=== PATIENT | male | born 1965 | race African-American/Black ===

== ENCOUNTER 2017-01-08 10:01 | Inpatient (IN) | payer OTHER ==
[2017-01-08 10:42] VITALS: BMI 29.1
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
[2017-01-08] MEDS ORDERED: ACETAMINOPHEN 325 MG TABLET (FP) PO PRN (11:51)
[2017-01-08] MEDS ORDERED: MAG HYDROX/AL HYDROX/SIMETH 30 ML UNIT-DOSE CUP PO PRN (11:51)
[2017-01-08] MEDS ORDERED: MAGNESIUM HYDROX 2400MG/30ML ORAL SUSPENSION 30 ML CUP PO PRN (11:51)
[2017-01-08] MEDS ORDERED: MENTHOL/PHENOL 1 EACH UD MM PRN (11:51)
[2017-01-08] MEDS ORDERED: chlordiazePOXIDE HCL 25 MG CAPSULE PO PRN (11:51)
[2017-01-08] MEDS ORDERED: MAGNESIUM CITRATE 300 ML BOTTLE PO PRN (11:51)
[2017-01-08] MEDS ORDERED: hydrOXYzine PAMOATE 50 MG CAPSULE (FP) PO PRN (11:51)
[2017-01-08] MEDS ORDERED: diphenhydrAMINE HCL 50 MG CAPSULE PO PRN (11:51)
[2017-01-08] MEDS ORDERED: guaiFENesin/D-METHORPHAN HB 10 ML UNIT-DOSE CUPS PO PRN (11:51)
[2017-01-08] MEDS ORDERED: LOPERAMIDE HCL 2 MG CAPSULE PO PRN (11:51)
[2017-01-08] MEDS ORDERED: P-EPHED 60MG/TRIPROLIDI 2.5MG TABLET PO PRN (11:51)
[2017-01-08] MEDS ORDERED: NICOTINE POLACRILEX 4 MG GUM BC PRN (11:51)
[2017-01-08] MEDS ORDERED: chlordiazePOXIDE HCL 25 MG CAPSULE PO ONE (13:00)
[2017-01-08 15:46] LABS: URINE APPEARANCE CLEAR; URINE BILIRUBIN NEGATIVE (NEGATIVE); URINE BLOOD NEGATIVE (NEGATIVE); URINE COLOR YELLOW; URINE GLUCOSE (UA) NEGATIVE (NEGATIVE); URINE KETONE NEGATIVE (NEGATIVE); URINE LEUK ESTERASE NEGATIVE (NEGATIVE); URINE NITRITE NEGATIVE (NEGATIVE); URINE PROTEIN NEGATIVE (NEGATIVE)
[2017-01-08] MEDS ORDERED: INSULIN (NOVOLOG) ASPART 100 UNITS/ML 10ML VIAL ONE (17:23)
[2017-01-08] MEDS: metFORMIN HCL 500 MG TABLET (FP) PO SCH (17:42)
[2017-01-08] MEDS: chlordiazePOXIDE HCL 25 MG CAPSULE PO SCH ×2 (17:42→22:21)
[2017-01-08] MEDS: INSULIN SLIDING SCALE (NOVOLOG) 1 VIAL SQ SCH (17:42)
[2017-01-08] MEDS: THIAMINE HCL 100 MG TABLET (FP) PO SCH (22:21)
[2017-01-09] MEDS: chlordiazePOXIDE HCL 25 MG CAPSULE PO SCH ×4 (06:10→22:34)
[2017-01-09] MEDS: metFORMIN HCL 500 MG TABLET (FP) PO SCH ×2 (06:48→17:14)
[2017-01-09] MEDS: INSULIN SLIDING SCALE (NOVOLOG) 1 VIAL SQ SCH ×2 (06:49→17:15)
--- NOTE | 2017-01-09 10:30 | PN ---
S CIWA - CIWA Score Nausea/Vomitin Muscle Tremors: 4-Moderate,w/Arms Extend Anxiety: 4-Mod. Anxious/Guarded Agitation: 4-Moderately Restless Paroxysmal Sweats: 3 Orientation: 0-Oriented Tacttile Disturbances: 1-Very Mild Itch/Numbness Auditory Disturbances: 0-None Visual Disturbances: 0-None Headache: 1-Very Mild CIWA-Ar Total Score: 20 BHS Progress Note (SOAP) Subjective: nausea, sweats, interrupted sleep, anxiety, tremors Objective: 01/09/17 10:30 Vital Signs - 24 hr 01/08/17 01/08/17 01/08/17 10:40 14:59 18:24 Temperature 98.8 F 97.9 F 97.9 F Pulse Rate 91 H 86 90 Respiratory 16 18 20 Rate Blood Pressure 128/76 122/74 140/89 01/08/17 01/09/17 01/09/17 23:21 03:30 06:23 Temperature 97.7 F 98.3 F Pulse Rate 96 H 96 H 79 Respiratory 20 18 18 Rate Blood Pressure 138/84 101/64 Laboratory Tests 01/08/17 01/08/17 01/08/17 12:06 12:51 16:33 POC Glucometer 203 151 Urine Color Yellow Urine Appearance Clear Urine pH 5.0 Ur Specific [place] >= 1.030 H Urine Protein Negative Urine Glucose (UA) Negative Urine Ketones Negative Urine Blood Negative Urine Nitrite Negative Urine Bilirubin Negative Urine Urobilinogen 2.0 Ur Leukocyte Esterase Negative 01/09/17 06:10 POC Glucometer 130 Urine Color Urine Appearance Urine pH Ur Specific [place] Urine Protein Urine Glucose (UA) Urine Ketones Urine Blood Urine Nitrite Urine Bilirubin Urine Urobilinogen Ur Leukocyte Esterase labs pending Assessment: 01/09/17 10:30 withdrawal sx Plan: cont detox.
[2017-01-09 10:35] LABS: MCH 31.5 pg (25.7-33.7); MEAN CELL VOLUME 95.6 fl (80-96); PLATELET COUNT 182 K/MM3 (134-434); WHITE BLOOD COUNT 4.8 K/mm3 (4.0-10.0)
[2017-01-09] MEDS: METHIMAZOLE 10 MG TABLET (FP) PO SCH (10:48)
[2017-01-09] MEDS: ASPIRIN 81 MG CHEWABLE TABLETS PO SCH (10:48)
[2017-01-09] MEDS: PRENATAL VITAMINS W/ FOLIC ACID TABLET (FP) PO SCH (10:48)
[2017-01-09 10:49] LABS: ANION GAP 8 (8-16); CALCIUM 8.6 mg/dL (8.5-10.1); CO2 27 mmol/L (21-32); GLUCOSE,RANDOM 206 mg/dL (74-106)
[2017-01-09 10:52] LABS: ALK PHOS 105 U/L (45-117); BILIRUBIN,TOTAL 0.3 mg/dL (0.2-1.0); CREATININE 0.9 mg/dL (0.7-1.3); SGOT/AST 13 U/L (15-37); SGPT/ALT 28 U/L (12-78)
[2017-01-09 11:28] LABS: HIV 1 & 2 AB NEGATIVE; HIV 1 AGp24 NEGATIVE
--- NOTE | 2017-01-09 14:04 | EKG ---
Test Reason : Blood Pressure : / mmHG Vent. Rate : 079 BPM Atrial Rate : 079 BPM P-R Int : 122 ms QRS Dur : 086 ms QT Int : 356 ms P-R-T Axes : 138 070 078 degrees QTc Int : 408 ms UNUSUAL P AXIS, POSSIBLE ECTOPIC ATRIAL RHYTHM MINIMAL VOLTAGE CRITERIA FOR LVH, MAY BE NORMAL VARIANT ST ELEVATION, CONSIDER EARLY REPOLARIZATION, PERICARDITIS, OR INJURY ABNORMAL ECG NO PREVIOUS ECGS AVAILABLE REPEAT EKG IF CLINICALLY INDICATED Confirmed by ALEC SOLIMAN MD ([id number]) on 01/09/2017 2:04:09 PM Referred By: Confirmed By:ALEC OSLIMAN MD
[2017-01-09] MEDS ORDERED: INSULIN (NOVOLOG) ASPART 100 UNITS/ML 10ML VIAL ONE (17:10)
[2017-01-09] MEDS: THIAMINE HCL 100 MG TABLET (FP) PO SCH (22:34)
[2017-01-10] MEDS: chlordiazePOXIDE HCL 25 MG CAPSULE PO SCH ×2 (05:50→10:48)
[2017-01-10] MEDS: metFORMIN HCL 500 MG TABLET (FP) PO SCH ×2 (07:59→17:46)
[2017-01-10] MEDS: INSULIN SLIDING SCALE (NOVOLOG) 1 VIAL SQ SCH ×2 (08:20→17:47)
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
[2017-01-10] MEDS: PRENATAL VITAMINS W/ FOLIC ACID TABLET (FP) PO SCH (10:48)
[2017-01-10] MEDS: ASPIRIN 81 MG CHEWABLE TABLETS PO SCH (10:48)
[2017-01-10] MEDS: METHIMAZOLE 10 MG TABLET (FP) PO SCH (10:49)
[2017-01-10] MEDS ORDERED: INSULIN (NOVOLOG) ASPART 100 UNITS/ML 10ML VIAL ONE (16:46)
[2017-01-10] MEDS: chlordiazePOXIDE 5 MG CAPSULE PO SCH ×2 (17:46→22:25)
[2017-01-10] MEDS: THIAMINE HCL 100 MG TABLET (FP) PO SCH (22:25)
[2017-01-11] MEDS: chlordiazePOXIDE 5 MG CAPSULE PO SCH ×2 (06:07→10:24)
[2017-01-11] MEDS: INSULIN SLIDING SCALE (NOVOLOG) 1 VIAL SQ SCH ×2 (06:51→17:30)
[2017-01-11] MEDS: metFORMIN HCL 500 MG TABLET (FP) PO SCH ×2 (06:51→17:30)
[2017-01-11] MEDS: PRENATAL VITAMINS W/ FOLIC ACID TABLET (FP) PO SCH (10:24)
[2017-01-11] MEDS: ASPIRIN 81 MG CHEWABLE TABLETS PO SCH (10:24)
[2017-01-11] MEDS: METHIMAZOLE 10 MG TABLET (FP) PO SCH (10:24)
--- NOTE | 2017-01-11 12:14 | PN ---
S CIWA - CIWA Score Nausea/Vomitin-No Nausea/No Vomiting Muscle Tremors: 3 Anxiety: 2 Agitation: 3 Paroxysmal Sweats: 2 Orientation: 0-Oriented Tacttile Disturbances: 0-None Auditory Disturbances: 0-None Visual Disturbances: 0-None Headache: 0-None Present CIWA-Ar Total Score: 10 BHS Progress Note (SOAP) Subjective: sweats nauses Objective: 01/11/17 12:12 Vital Signs Temperature 98.2 F 01/11/17 11:13 Pulse Rate 108 H 01/11/17 11:13 Respiratory Rate 18 01/11/17 11:13 Blood Pressure 122/68 01/11/17 11:13 O2 Sat by Pulse Oximetry (%) Laboratory Tests 01/08/17 01/08/17 01/08/17 12:06 12:51 16:33 WBC RBC Hgb Hct MCV MCH MCHC RDW Plt Count MPV Sodium Potassium Chloride Carbon Dioxide Anion Gap BUN Creatinine Creat Clearance w eGFR POC Glucometer 203 151 Random Glucose Calcium Total Bilirubin AST ALT Alkaline Phosphatase Total Protein Albumin Urine Color Yellow Urine Appearance Clear Urine pH 5.0 Ur Specific [place] >= 1.030 H Urine Protein Negative Urine Glucose (UA) Negative Urine Ketones Negative Urine Blood Negative Urine Nitrite Negative Urine Bilirubin Negative Urine Urobilinogen 2.0 Ur Leukocyte Esterase Negative RPR Titer HIV 1&2 Antibody Screen HIV P24 Antigen 01/09/17 01/09/17 01/09/17 06:10 07:00 07:00 WBC 4.8 RBC 4.44 Hgb 14.0 Hct 42.5 MCV 95.6 MCH 31.5 MCHC 33.0 RDW 14.0 Plt Count 182 MPV 9.0 Sodium 140 Potassium 4.1 Chloride 105 Carbon Dioxide 27 Anion Gap 8 BUN 10 Creatinine 0.9 Creat Clearance w eGFR > 60 POC Glucometer 130 Random Glucose 206 H Calcium 8.6 Total Bilirubin 0.3 AST 13 L ALT 28 Alkaline Phosphatase 105 Total Protein 6.0 L Albumin 3.0 L Urine Color Urine Appearance Urine pH Ur Specific [place] Urine Protein Urine Glucose (UA) Urine Ketones Urine Blood Urine Nitrite Urine Bilirubin Urine Urobilinogen Ur Leukocyte Esterase RPR Titer HIV 1&2 Antibody Screen HIV P24 Antigen 01/09/17 01/09/17 01/09/17 07:00 07:00 16:38 WBC RBC Hgb Hct MCV MCH MCHC RDW Plt Count MPV Sodium Potassium Chloride Carbon Dioxide Anion Gap BUN Creatinine Creat Clearance w eGFR POC Glucometer 221 Random Glucose Calcium Total Bilirubin AST ALT Alkaline Phosphatase Total Protein Albumin Urine Color Urine Appearance Urine pH Ur Specific [place] Urine Protein Urine Glucose (UA) Urine Ketones Urine Blood Urine Nitrite Urine Bilirubin Urine Urobilinogen Ur Leukocyte Esterase RPR Titer Nonreactive HIV 1&2 Antibody Screen Negative HIV P24 Antigen Negative 01/10/17 01/11/17 16:23 06:06 WBC RBC Hgb Hct MCV MCH MCHC RDW Plt Count MPV Sodium Potassium Chloride Carbon Dioxide Anion Gap BUN Creatinine Creat Clearance w eGFR POC Glucometer 227 216 Random Glucose Calcium Total Bilirubin AST ALT Alkaline Phosphatase Total Protein Albumin Urine Color Urine Appearance Urine pH Ur Specific [place] Urine Protein Urine Glucose (UA) Urine Ketones Urine Blood Urine Nitrite Urine Bilirubin Urine Urobilinogen Ur Leukocyte Esterase RPR Titer HIV 1&2 Antibody Screen HIV P24 Antigen awake/alert ambulating no acute distress Assessment: 01/11/17 12:13 withdrawal sx Plan: continue detox increase fluids d/c in am
[2017-01-11] MEDS: chlordiazePOXIDE HCL 10 MG CAPSULE PO SCH ×2 (17:30→23:33)
[2017-01-11] MEDS ORDERED: INSULIN (NOVOLOG) ASPART 100 UNITS/ML 10ML VIAL ONE (17:30)
[2017-01-11] MEDS: THIAMINE HCL 100 MG TABLET (FP) PO SCH (23:33)
[2017-01-12 05:57] VITALS: BP 92/54; PULSE 83; TEMP 98.2
[2017-01-12] MEDS: chlordiazePOXIDE HCL 10 MG CAPSULE PO SCH (06:45)
[2017-01-12] MEDS: INSULIN SLIDING SCALE (NOVOLOG) 1 VIAL SQ SCH (06:46)
[2017-01-12] MEDS: metFORMIN HCL 500 MG TABLET (FP) PO SCH (06:47)
--- NOTE | 2017-01-12 09:30 | DS ---
[facility] Detox Discharge Summary Admission Date: 01/08/17 Discharge Date: 01/12/17 - History Present History: Alcohol Dependence, Cocaine Dependence Pertinent Past History: DM, hyperthyroidism, depression, anxiety, insomnia - Physical Exam Results Vital Signs: Vital Signs Temperature 98.2 F 01/12/17 05:56 Pulse Rate 83 01/12/17 05:56 Respiratory Rate 18 01/12/17 05:56 Blood Pressure 92/54 01/12/17 05:56 O2 Sat by Pulse Oximetry (%) Laboratory Tests 01/08/17 01/08/17 01/08/17 12:06 12:51 16:33 WBC RBC Hgb Hct MCV MCH MCHC RDW Plt Count MPV Sodium Potassium Chloride Carbon Dioxide Anion Gap BUN Creatinine Creat Clearance w eGFR POC Glucometer 203 151 Random Glucose Calcium Total Bilirubin AST ALT Alkaline Phosphatase Total Protein Albumin Urine Color Yellow Urine Appearance Clear Urine pH 5.0 Ur Specific [place] >= 1.030 H Urine Protein Negative Urine Glucose (UA) Negative Urine Ketones Negative Urine Blood Negative Urine Nitrite Negative Urine Bilirubin Negative Urine Urobilinogen 2.0 Ur Leukocyte Esterase Negative RPR Titer HIV 1&2 Antibody Screen HIV P24 Antigen 01/09/17 01/09/17 01/09/17 06:10 07:00 07:00 WBC 4.8 RBC 4.44 Hgb 14.0 Hct 42.5 MCV 95.6 MCH 31.5 MCHC 33.0 RDW 14.0 Plt Count 182 MPV 9.0 Sodium 140 Potassium 4.1 Chloride 105 Carbon Dioxide 27 Anion Gap 8 BUN 10 Creatinine 0.9 Creat Clearance w eGFR > 60 POC Glucometer 130 Random Glucose 206 H Calcium 8.6 Total Bilirubin 0.3 AST 13 L ALT 28 Alkaline Phosphatase 105 Total Protein 6.0 L Albumin 3.0 L Urine Color Urine Appearance Urine pH Ur Specific [place] Urine Protein Urine Glucose (UA) Urine Ketones Urine Blood Urine Nitrite Urine Bilirubin Urine Urobilinogen Ur Leukocyte Esterase RPR Titer HIV 1&2 Antibody Screen HIV P24 Antigen 01/09/17 01/09/17 01/09/17 07:00 07:00 16:38 WBC RBC Hgb Hct MCV MCH MCHC RDW Plt Count MPV Sodium Potassium Chloride Carbon Dioxide Anion Gap BUN Creatinine Creat Clearance w eGFR POC Glucometer 221 Random Glucose Calcium Total Bilirubin AST ALT Alkaline Phosphatase Total Protein Albumin Urine Color Urine Appearance Urine pH Ur Specific [place] Urine Protein Urine Glucose (UA) Urine Ketones Urine Blood Urine Nitrite Urine Bilirubin Urine Urobilinogen Ur Leukocyte Esterase RPR Titer Nonreactive HIV 1&2 Antibody Screen Negative HIV P24 Antigen Negative 01/10/17 01/11/17 01/11/17 16:23 06:06 16:25 WBC RBC Hgb Hct MCV MCH MCHC RDW Plt Count MPV Sodium Potassium Chloride Carbon Dioxide Anion Gap BUN Creatinine Creat Clearance w eGFR POC Glucometer 227 216 273 Random Glucose Calcium Total Bilirubin AST ALT Alkaline Phosphatase Total Protein Albumin Urine Color Urine Appearance Urine pH Ur Specific [place] Urine Protein Urine Glucose (UA) Urine Ketones Urine Blood Urine Nitrite Urine Bilirubin Urine Urobilinogen Ur Leukocyte Esterase RPR Titer HIV 1&2 Antibody Screen HIV P24 Antigen Pertinent Admission Physical Exam Findings: withdrawal sx - Treatment Hospital Course: Detox Protocol Followed, Detoxed Safely, Responded well, Discharged Condition Good, Rehab Referral Accepted - Medication Discharge Medications: Ambulatory Orders Aspirin [ASA -] 81 mg PO DAILY 01/08/17 Metformin HCl [Glucophage -] 500 mg PO BID 01/08/17 Methimazole [Tapazole -] 10 mg PO DAILY 01/08/17 - Diagnosis (1) Alcohol dependence with uncomplicated withdrawal Current Visit: Yes Status: Chronic (2) Cocaine dependence Current Visit: Yes Status: Chronic Qualifiers: Substance use status: uncomplicated Qualified Code(s): F14.20 - Cocaine dependence, uncomplicated (3) Diabetes mellitus treated with oral medication Current Visit: Yes Status: Chronic (4) Hyperthyroidism Current Visit: Yes Status: Chronic (5) Opiate abuse, episodic Current Visit: Yes Status: Chronic (6) PPD positive, treated Current Visit: Yes Status: Inactive - AMA Did Patient Leave Against Medical Advice: No
== END 2017-01-12 09:20 | disposition home or self-care (01) | DRG 774 ==
LOC: YASAS 10:01 → Y6N 12:29
PROVIDERS: ADMIT Internal Medicine Addiction Medicine; ATTEND Internal Medicine Addiction Medicine
PROC: HZ2ZZZZ Detoxification Services for Substance Abuse Treatment (ICD-10-PCS; principal; 2017-01-08)
DX: F10.230 Alcohol dependence with withdrawal, uncomplicated (principal); F14.20 Cocaine dependence, uncomplicated; F10.10 Alcohol abuse, uncomplicated; F17.210 Nicotine dependence, cigarettes, uncomplicated; E11.9 Type 2 diabetes mellitus without complications; E05.90 Thyrotoxicosis, unspecified without thyrotoxic crisis or storm; R76.11 Nonspecific reaction to tuberculin skin test without active tuberculosis; Z79.82 Long term (current) use of aspirin; Z79.84 Long term (current) use of oral hypoglycemic drugs; Z59.0 Homelessness
CPT/HCPCS: 36415; 71020-TC; 80053; 81003; 85027; 86593; 87389; 93005; 93010

== ENCOUNTER 2017-03-07 13:03 | Inpatient (IN) | payer OTHER ==
[2017-03-07 14:32] VITALS: BMI 28.6
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
[2017-03-07] MEDS ORDERED: MENTHOL/PHENOL 1 EACH UD MM PRN (16:26)
[2017-03-07] MEDS ORDERED: diphenhydrAMINE HCL 50 MG CAPSULE PO PRN (16:26)
[2017-03-07] MEDS ORDERED: P-EPHED 60MG/TRIPROLIDI 2.5MG TABLET PO PRN (16:26)
[2017-03-07] MEDS ORDERED: NICOTINE POLACRILEX 2 MG GUM BC PRN (16:26)
[2017-03-07] MEDS ORDERED: ACETAMINOPHEN 325 MG TABLET (FP) PO PRN (16:26)
[2017-03-07] MEDS ORDERED: LOPERAMIDE HCL 2 MG CAPSULE PO PRN (16:26)
[2017-03-07] MEDS ORDERED: hydrOXYzine PAMOATE 50 MG CAPSULE (FP) PO PRN (16:26)
[2017-03-07] MEDS ORDERED: MAGNESIUM CITRATE 300 ML BOTTLE PO PRN (16:26)
[2017-03-07] MEDS ORDERED: MAGNESIUM HYDROX 2400MG/30ML ORAL SUSPENSION 30 ML CUP PO PRN (16:26)
[2017-03-07] MEDS ORDERED: guaiFENesin/D-METHORPHAN HB 10 ML UNIT-DOSE CUPS PO PRN (16:26)
[2017-03-07] MEDS ORDERED: chlordiazePOXIDE HCL 25 MG CAPSULE PO PRN (16:26)
[2017-03-07] MEDS ORDERED: MAG HYDROX/AL HYDROX/SIMETH 30 ML UNIT-DOSE CUP PO PRN (16:26)
[2017-03-07] MEDS ORDERED: IBUPROFEN 400 MG TABLET (FP) PO PRN (16:26)
[2017-03-07] MEDS ORDERED: chlordiazePOXIDE HCL 25 MG CAPSULE PO SCH (17:00)
[2017-03-07] MEDS ORDERED: chlordiazePOXIDE HCL 25 MG CAPSULE PO ONE (17:30)
[2017-03-07] MEDS: ASPIRIN 81 MG CHEWABLE TABLETS PO SCH (17:42)
[2017-03-07] MEDS: NICOTINE 14 MG/24 HOURS TOPICAL PATCH TD SCH (17:43)
[2017-03-07] MEDS: METHIMAZOLE 10 MG TABLET (FP) PO SCH (18:05)
[2017-03-07 22:13] LABS: URINE APPEARANCE CLEAR; URINE BILIRUBIN NEGATIVE (NEGATIVE); URINE BLOOD NEGATIVE (NEGATIVE); URINE COLOR YELLOW; URINE GLUCOSE (UA) 1+ (NEGATIVE); URINE KETONE NEGATIVE (NEGATIVE); URINE NITRITE NEGATIVE (NEGATIVE); URINE PROTEIN NEGATIVE (NEGATIVE)
[2017-03-07] MEDS: THIAMINE HCL 100 MG TABLET (FP) PO SCH (22:27)
[2017-03-07] MEDS: chlordiazePOXIDE HCL 25 MG CAPSULE PO SCH (22:28)
[2017-03-08] MEDS: chlordiazePOXIDE HCL 25 MG CAPSULE PO SCH ×4 (05:55→22:14)
[2017-03-08] MEDS: metFORMIN HCL 500 MG TABLET (FP) PO SCH (07:24)
[2017-03-08 09:03] LABS: URINE LEUK ESTERASE Negative (NEGATIVE)
[2017-03-08 10:00] LABS: MCH 31.5 pg (25.7-33.7); MCHC 33.4 g/dl (32.0-35.9); MEAN CELL VOLUME 94.4 fl (80-96); MEAN PLT VOLUME 9.8 fl (7.5-11.1); PLATELET COUNT 182 K/MM3 (134-434); RDW 14.3 % (11.9-15.9); WHITE BLOOD COUNT 6.3 K/mm3 (4.0-10.0)
[2017-03-08] MEDS: METHIMAZOLE 10 MG TABLET (FP) PO SCH (10:13)
[2017-03-08] MEDS: ASPIRIN 81 MG CHEWABLE TABLETS PO SCH (10:13)
[2017-03-08] MEDS: PRENATAL VITAMINS W/ FOLIC ACID TABLET (FP) PO SCH (10:13)
[2017-03-08] MEDS: NICOTINE 14 MG/24 HOURS TOPICAL PATCH TD SCH (10:14)
[2017-03-08 10:19] LABS: ALBUMIN 3.3 g/dl (3.4-5.0); ALK PHOS 107 U/L (45-117); ANION GAP 6 (8-16); BILIRUBIN,TOTAL 0.4 mg/dL (0.2-1.0); CALCIUM 8.8 mg/dL (8.5-10.1); CO2 31 mmol/L (21-32); CREATININE 1.2 mg/dL (0.7-1.3); GLUCOSE,RANDOM 149 mg/dL (74-106); SGOT/AST 16 U/L (15-37); SGPT/ALT 29 U/L (12-78); TOT PROT 6.6 g/dl (6.4-8.2)
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
[2017-03-08] MEDS ORDERED: FLU VACCINE QUAD 60 MCG/0.5 ML (MDV 17-18) IM ONE (12:00)
[2017-03-08 12:05] LABS: HIV 1 & 2 AB NEGATIVE; HIV 1 AGp24 NEGATIVE
--- NOTE | 2017-03-08 12:31 | PN ---
[facility] CIWA - CIWA Score Nausea/Vomitin-No Nausea/No Vomiting Muscle Tremors: 4-Moderate,w/Arms Extend Anxiety: 3 Agitation: 2 Paroxysmal Sweats: 3 Orientation: 0-Oriented Tacttile Disturbances: 2-Mild Itch/Numbness/Burn Auditory Disturbances: 1-Very Mild Visual Disturbances: 2-Mild Sensitivity Headache: 0-None Present CIWA-Ar Total Score: 17 S Progress Note (SOAP) Subjective: Sweating, Anxious, Tremors. Objective: PT. A & O X 3, OBSERVED AMBULATING ON UNIT. NO ACUTE DISTRESS. 03/08/17 12:29 Vital Signs Temperature 97.0 F L 03/08/17 09:10 Pulse Rate 79 03/08/17 09:10 Respiratory Rate 18 03/08/17 09:10 Blood Pressure 108/72 03/08/17 09:10 O2 Sat by Pulse Oximetry (%) Laboratory Tests 03/07/17 03/07/17 03/07/17 06:00 15:40 21:45 WBC RBC Hgb Hct MCV MCH MCHC RDW Plt Count MPV Sodium Potassium Chloride Carbon Dioxide Anion Gap BUN Creatinine Creat Clearance w eGFR POC Glucometer 160 Random Glucose Calcium Total Bilirubin AST ALT Alkaline Phosphatase Total Protein Albumin Urine Color Yellow Urine Appearance Clear Urine pH 5.0 Ur Specific [place] 1.020 Urine Protein Negative Urine Glucose (UA) 1+ H Urine Ketones Negative Urine Blood Negative Urine Nitrite Negative Urine Bilirubin Negative Urine Urobilinogen 2.0 Ur Leukocyte Esterase Negative RPR Titer HIV 1&2 Antibody Screen Negative HIV P24 Antigen Negative 03/08/17 03/08/17 03/08/17 05:55 06:00 06:00 WBC 6.3 D RBC 4.66 Hgb 14.7 Hct 44.0 MCV 94.4 MCH 31.5 MCHC 33.4 RDW 14.3 Plt Count 182 MPV 9.8 Sodium 141 Potassium 4.1 Chloride 104 Carbon Dioxide 31 Anion Gap 6 L BUN 11 Creatinine 1.2 D Creat Clearance w eGFR > 60 POC Glucometer 135 Random Glucose 149 H D Calcium 8.8 Total Bilirubin 0.4 D AST 16 D ALT 29 Alkaline Phosphatase 107 Total Protein 6.6 Albumin 3.3 L Urine Color Urine Appearance Urine pH Ur Specific [place] Urine Protein Urine Glucose (UA) Urine Ketones Urine Blood Urine Nitrite Urine Bilirubin Urine Urobilinogen Ur Leukocyte Esterase RPR Titer HIV 1&2 Antibody Screen HIV P24 Antigen 03/08/17 06:00 WBC RBC Hgb Hct MCV MCH MCHC RDW Plt Count MPV Sodium Potassium Chloride Carbon Dioxide Anion Gap BUN Creatinine Creat Clearance w eGFR POC Glucometer Random Glucose Calcium Total Bilirubin AST ALT Alkaline Phosphatase Total Protein Albumin Urine Color Urine Appearance Urine pH Ur Specific [place] Urine Protein Urine Glucose (UA) Urine Ketones Urine Blood Urine Nitrite Urine Bilirubin Urine Urobilinogen Ur Leukocyte Esterase RPR Titer Nonreactive HIV 1&2 Antibody Screen HIV P24 Antigen LABS NOTED. Assessment: 03/08/17 12:29 WITHDRAWAL SYMPTOMS. Plan: CONTINUE DETOX. INCREASE DAILY PO FLUID INTAKE.
[2017-03-08] MEDS: THIAMINE HCL 100 MG TABLET (FP) PO SCH (22:14)
[2017-03-09] MEDS: chlordiazePOXIDE HCL 25 MG CAPSULE PO SCH ×2 (05:17→10:10)
[2017-03-09] MEDS: metFORMIN HCL 500 MG TABLET (FP) PO SCH (06:51)
[2017-03-09] MEDS: METHIMAZOLE 10 MG TABLET (FP) PO SCH (10:10)
[2017-03-09] MEDS: ASPIRIN 81 MG CHEWABLE TABLETS PO SCH (10:10)
[2017-03-09] MEDS: NICOTINE 14 MG/24 HOURS TOPICAL PATCH TD SCH (10:10)
[2017-03-09] MEDS: PRENATAL VITAMINS W/ FOLIC ACID TABLET (FP) PO SCH (10:10)
--- NOTE | 2017-03-09 11:41 | PN ---
[facility] CIWA - CIWA Score Nausea/Vomitin-No Nausea/No Vomiting Muscle Tremors: 3 Anxiety: 4-Mod. Anxious/Guarded Agitation: 2 Paroxysmal Sweats: 3 Orientation: 0-Oriented Tacttile Disturbances: 2-Mild Itch/Numbness/Burn Auditory Disturbances: 1-Very Mild Visual Disturbances: 2-Mild Sensitivity Headache: 0-None Present CIWA-Ar Total Score: 17 S Progress Note (SOAP) Subjective: Tremors, Sweating, Anxious. Objective: PT. A & OX 3, OBSERVED AMBULATING ON UNIT. NO ACUTE DISTRESS. 03/09/17 11:40 Vital Signs Temperature 96.4 F L 03/09/17 08:53 Pulse Rate 74 03/09/17 08:53 Respiratory Rate 18 03/09/17 08:53 Blood Pressure 125/87 03/09/17 08:53 O2 Sat by Pulse Oximetry (%) Laboratory Tests 03/07/17 03/07/17 03/07/17 06:00 15:40 21:45 WBC RBC Hgb Hct MCV MCH MCHC RDW Plt Count MPV Sodium Potassium Chloride Carbon Dioxide Anion Gap BUN Creatinine Creat Clearance w eGFR POC Glucometer 160 Random Glucose Calcium Total Bilirubin AST ALT Alkaline Phosphatase Total Protein Albumin Urine Color Yellow Urine Appearance Clear Urine pH 5.0 Ur Specific [place] 1.020 Urine Protein Negative Urine Glucose (UA) 1+ H Urine Ketones Negative Urine Blood Negative Urine Nitrite Negative Urine Bilirubin Negative Urine Urobilinogen 2.0 Ur Leukocyte Esterase Negative RPR Titer HIV 1&2 Antibody Screen Negative HIV P24 Antigen Negative 03/08/17 03/08/17 03/08/17 05:55 06:00 06:00 WBC 6.3 D RBC 4.66 Hgb 14.7 Hct 44.0 MCV 94.4 MCH 31.5 MCHC 33.4 RDW 14.3 Plt Count 182 MPV 9.8 Sodium 141 Potassium 4.1 Chloride 104 Carbon Dioxide 31 Anion Gap 6 L BUN 11 Creatinine 1.2 D Creat Clearance w eGFR > 60 POC Glucometer 135 Random Glucose 149 H D Calcium 8.8 Total Bilirubin 0.4 D AST 16 D ALT 29 Alkaline Phosphatase 107 Total Protein 6.6 Albumin 3.3 L Urine Color Urine Appearance Urine pH Ur Specific [place] Urine Protein Urine Glucose (UA) Urine Ketones Urine Blood Urine Nitrite Urine Bilirubin Urine Urobilinogen Ur Leukocyte Esterase RPR Titer HIV 1&2 Antibody Screen HIV P24 Antigen 03/08/17 03/08/17 03/09/17 06:00 16:08 05:16 WBC RBC Hgb Hct MCV MCH MCHC RDW Plt Count MPV Sodium Potassium Chloride Carbon Dioxide Anion Gap BUN Creatinine Creat Clearance w eGFR POC Glucometer 137 168 Random Glucose Calcium Total Bilirubin AST ALT Alkaline Phosphatase Total Protein Albumin Urine Color Urine Appearance Urine pH Ur Specific [place] Urine Protein Urine Glucose (UA) Urine Ketones Urine Blood Urine Nitrite Urine Bilirubin Urine Urobilinogen Ur Leukocyte Esterase RPR Titer Nonreactive HIV 1&2 Antibody Screen HIV P24 Antigen LABS NOTED. Assessment: 03/09/17 11:40 WITHDRAWAL SYMPTOMS. Plan: CONTINUE DETOX.
--- NOTE | 2017-03-09 12:48 | EKG ---
Test Reason : Blood Pressure : / mmHG Vent. Rate : 083 BPM Atrial Rate : 083 BPM P-R Int : 112 ms QRS Dur : 074 ms QT Int : 354 ms P-R-T Axes : 051 041 035 degrees QTc Int : 415 ms NORMAL SINUS RHYTHM WITH SINUS ARRHYTHMIA NORMAL ECG WHEN COMPARED WITH ECG OF 08-JAN-2017 12:29, SINUS RHYTHM HAS REPLACED ECTOPIC ATRIAL RHYTHM Confirmed by RHYS ARCHER, DANIELLE ([id number]) on 03/09/2017 12:47:48 PM Referred By: Confirmed By:DANIELLE JOINER MD
--- NOTE | 2017-03-09 16:11 | PN ---
[facility] Progress Note Note: Patient reporting that current Detox symptoms are minimal and that he feels well overall. At patient's request, current Detox regimen (Librium) modified so that patient may be discharged on 03/10/2017, at which time a bed will be available so that patient may be admitted to [facility]. Crow Zapata NP
[2017-03-09] MEDS ORDERED: chlordiazePOXIDE 5 MG CAPSULE PO SCH ×2 (17:00→23:00)
[2017-03-09] MEDS: THIAMINE HCL 100 MG TABLET (FP) PO SCH (22:24)
[2017-03-09] MEDS: chlordiazePOXIDE HCL 10 MG CAPSULE PO SCH (22:24)
[2017-03-10] MEDS: chlordiazePOXIDE HCL 10 MG CAPSULE PO SCH (05:14)
[2017-03-10] MEDS: metFORMIN HCL 500 MG TABLET (FP) PO SCH (07:54)
[2017-03-10 09:14] VITALS: BP 132/71; PULSE 87; TEMP 98.1
--- NOTE | 2017-03-10 09:42 | DS ---
[facility] Det[facility] Discharge Summary Admission Date: 03/07/17 Discharge Date: 03/10/17 - History Present History: Alcohol Dependence, Cannabis Dependence, Cocaine Dependence Additional Comments: DETOX COMPLETED. ALERT O X 3. NAD. PT STATES HE HAS A PMD/PCP DR FRANCO AT [facility] AND DECLINED RX FROM [facility] MAINTAINING HE IS GOING TO [facility] TODAY AND THEY WILL BE TAKING CARE OF HIS PRESCRIPTIONS. OFFERED TO ESCRIPT RX(METFORMIN AND TAPAZOLE) TO HIS [facility] BUT HE DECLINED. Pertinent Past History: TYPE 2 DM HYPERTHYROIDISM - Physical Exam Results Vital Signs: Vital Signs Temperature 98.1 F 03/10/17 09:13 Pulse Rate 87 03/10/17 09:13 Respiratory Rate 18 03/10/17 09:13 Blood Pressure 132/71 03/10/17 09:13 O2 Sat by Pulse Oximetry (%) Pertinent Admission Physical Exam Findings: WITHDRAWAL SX Laboratory Last Values WBC 6.3 K/mm3 (4.0-10.0) D 03/08/17 06:00 RBC 4.66 M/mm3 (4.00-5.60) 03/08/17 06:00 Hgb 14.7 GM/dL (11.7-16.9) 03/08/17 06:00 Hct 44.0 % (35.4-49) 03/08/17 06:00 MCV 94.4 fl (80-96) 03/08/17 06:00 MCH 31.5 pg (25.7-33.7) 03/08/17 06:00 MCHC 33.4 g/dl (32.0-35.9) 03/08/17 06:00 RDW 14.3 % (11.9-15.9) 03/08/17 06:00 Plt Count 182 K/MM3 (134-434) 03/08/17 06:00 MPV 9.8 fl (7.5-11.1) 03/08/17 06:00 Sodium 141 mmol/L (136-145) 03/08/17 06:00 Potassium 4.1 mmol/L (3.5-5.1) 03/08/17 06:00 Chloride 104 mmol/L (98-107) 03/08/17 06:00 Carbon Dioxide 31 mmol/L (21-32) 03/08/17 06:00 Anion Gap 6 (8-16) L 03/08/17 06:00 BUN 11 mg/dL (7-18) 03/08/17 06:00 Creatinine 1.2 mg/dL (0.7-1.3) D 03/08/17 06:00 Creat Clearance w eGFR > 60 (>60) 03/08/17 06:00 POC Glucometer 245 UNITS (()) 03/10/17 05:14 Random Glucose 149 mg/dL (74-106) H D 03/08/17 06:00 Calcium 8.8 mg/dL (8.5-10.1) 03/08/17 06:00 Total Bilirubin 0.4 mg/dL (0.2-1.0) D 03/08/17 06:00 AST 16 U/L (15-37) D 03/08/17 06:00 ALT 29 U/L (12-78) 03/08/17 06:00 Alkaline Phosphatase 107 U/L (45-117) 03/08/17 06:00 Total Protein 6.6 g/dl (6.4-8.2) 03/08/17 06:00 Albumin 3.3 g/dl (3.4-5.0) L 03/08/17 06:00 Urine Color Yellow 03/07/17 21:45 Urine Appearance Clear 03/07/17 21:45 Urine pH 5.0 (5.0-8.0) 03/07/17 21:45 Ur Specific [place] 1.020 (1.001-1.035) 03/07/17 21:45 Urine Protein Negative (NEGATIVE) 03/07/17 21:45 Urine Glucose (UA) 1+ (NEGATIVE) H 03/07/17 21:45 Urine Ketones Negative (NEGATIVE) 03/07/17 21:45 Urine Blood Negative (NEGATIVE) 03/07/17 21:45 Urine Nitrite Negative (NEGATIVE) 03/07/17 21:45 Urine Bilirubin Negative (NEGATIVE) 03/07/17 21:45 Urine Urobilinogen 2.0 mg/dL (0.2-1.0) 03/07/17 21:45 Ur Leukocyte Esterase Negative (NEGATIVE) 03/07/17 21:45 RPR Titer Nonreactive (NONREACTIVE) 03/08/17 06:00 HIV 1&2 Antibody Screen Negative 03/07/17 06:00 HIV P24 Antigen Negative 03/07/17 06:00 - Treatment Hospital Course: Detox Protocol Followed, Detoxed Safely, Responded well, Discharged Condition Good, Rehab Referral Accepted Patient has Accepted a Rehab Referral to: [facility] - Medication Discharge Medications: Ambulatory Orders Aspirin [ASA -] 81 mg PO DAILY 01/08/17 Metformin HCl [Glucophage -] 500 mg PO DAILY 01/08/17 Methimazole [Tapazole -] 10 mg PO DAILY 01/08/17 - Diagnosis (1) Alcohol dependence with uncomplicated withdrawal Current Visit: Yes Status: Acute (2) Cocaine dependence Current Visit: Yes Status: Acute Qualifiers: Substance use status: uncomplicated Qualified Code(s): F14.20 - Cocaine dependence, uncomplicated; F14.20 - Cocaine dependence, uncomplicated; F14.20 - Cocaine dependence, uncomplicated (3) Diabetes mellitus treated with oral medication Current Visit: Yes Status: Chronic (4) Hyperthyroidism Current Visit: Yes Status: Chronic (5) Cannabis dependence, uncomplicated Current Visit: Yes Status: Acute - AMA Did Patient Leave Against Medical Advice: No
[2017-03-10] MEDS: NICOTINE 14 MG/24 HOURS TOPICAL PATCH TD SCH (10:30)
[2017-03-10] MEDS: ASPIRIN 81 MG CHEWABLE TABLETS PO SCH (10:30)
[2017-03-10] MEDS: PRENATAL VITAMINS W/ FOLIC ACID TABLET (FP) PO SCH (10:30)
[2017-03-10] MEDS: METHIMAZOLE 10 MG TABLET (FP) PO SCH (10:30)
[2017-03-10] MEDS ORDERED: chlordiazePOXIDE HCL 10 MG CAPSULE PO SCH (23:00)
== END 2017-03-10 11:11 | disposition home or self-care (01) | DRG 774 ==
LOC: YASAS 13:03 → Y3N 16:50
PROVIDERS: ADMIT Internal Medicine; ATTEND Internal Medicine
PROC: HZ2ZZZZ Detoxification Services for Substance Abuse Treatment (ICD-10-PCS; principal; 2017-03-07)
DX: F10.230 Alcohol dependence with withdrawal, uncomplicated (principal); F14.20 Cocaine dependence, uncomplicated; F12.20 Cannabis dependence, uncomplicated; F17.210 Nicotine dependence, cigarettes, uncomplicated; F32.9 Major depressive disorder, single episode, unspecified; G47.00 Insomnia, unspecified; E11.9 Type 2 diabetes mellitus without complications; Z79.84 Long term (current) use of oral hypoglycemic drugs; Z59.0 Homelessness
CPT/HCPCS: 36415; 80053; 81003; 85027; 86593; 87389; 93005; 93010